=== PATIENT | male | born 1980 | race African-American/Black ===

== ENCOUNTER 2017-02-28 11:17 | Emergency (ER) | payer OTHER ==
--- NOTE | ~2017-02-28 | CR230 ---
[facility] A Service of [facility] & [facility] RADIOLOGY TEXT RESULTS PATIENT: EAMON TORIBIO LOCATION: CFTX : 84 UNIT #: [id number] AGE: [address]: Flori Mehta APRN SEX: M ORDER DR: [id number] [facility] [address] [place], [place] [address] [id number] MR#: [id number] Acc #: [id number] NAME: EAMON TORIBIO : 1980 SEX: M STUDY DATE/TIME: 02/28/2017 11:51 UNIT: [facility] ROOM: STUDY DESCRIPTION: CR Shoulder Min 2 View Rt Attending Physician: Flori Mehta A.P.R.N. Ordering Physician: Ed Shakir Suárez M.D. Primary Care Physician: No Primary Care Physician MEDICAL IMAGING REPORT This report is preliminary unless electronic signature is present EXAM Right shoulder, 3 views; 02/28/2017. HISTORY Right shoulder pain. Injured shoulder doing pushups this morning. FINDINGS AP view with internal and external rotation of the shoulder girdle shows satisfactory relationship of the humeral head and glenoid fossa. The joint space is normal. There is no identifiable fracture or dislocation or bony destructive process about the shoulder girdle anatomy. The acromioclavicular joint is normal. There is no radiopaque foreign body in the region. IMPRESSION Normal right shoulder. Dictated by... Mark Licea M.D. THIS IS AN ELECTRONICALLY VERIFIED REPORT Mark Licea M.D. at 03/01/2017 6:27 AM LING/fidel TD: 02/28/2017 15:37 JOB #: [id number] MEDICAL IMAGING REPORT Page 1 of 1 COPY
== END 2017-02-28 12:22 | disposition home or self-care (01) ==
LOC: CED 11:17 → CFTX 11:17
DX: S46.911A Strain of unspecified muscle, fascia and tendon at shoulder and upper arm level, right arm, initial encounter (principal); F17.210 Nicotine dependence, cigarettes, uncomplicated; X50.0XXA Overexertion from strenuous movement or load, initial encounter; Y93.89 Activity, other specified; Y92.009 Unspecified place in unspecified non-institutional (private) residence as the place of occurrence of the external cause; Z91.013 Allergy to seafood
CPT/HCPCS: 73030; 99283